=== PATIENT | male | born 1945 | race Caucasian/White ===

== ENCOUNTER 2016-12-30 11:26 | Inpatient (IN) | payer MEDICARE, BC ==
[2016-12-24 14:46] LABS: HEMATOCRIT 40.9 % (40.0-51.0); HEMOGLOBIN 13.8 g/dL (13.6-17.8)
[2016-12-24 14:59] LABS: BUN (BLOOD UREA NITROGEN) 23 MG/DL (6-23); CALCIUM, SERUM 8.7 MG/DL (8.5-10.4); CHLORIDE, SERUM 104 MMOL/L (96-112); CO2 (CARBON DIOXIDE) 30 MMOL/L (24-34); CREATININE 1.25 MG/DL (0.70-1.30); GFR AFRICAN AMERICAN 68 ML/MIN (>=60); GFR NON AFRICAN AMERICAN 58 ML/MIN (>=60); GLUCOSE, SERUM 109 MG/DL (60-99); SODIUM, SERUM 141 MMOL/L (135-148)
[2016-12-24 17:18] LABS: ASCORBIC ACID (UR NOT ORDER) NEG (NEG); BILIRUBIN, URINE NEGATIVE (NEG); KETONE, URINE NEGATIVE (NEG); LEUKOCYTE ESTERASE(NOT OR NEG (NEG); WBC (NOT ORDERED) (RFLEX) < 1 (0-5)
--- NOTE | ~2016-12-30 | DS ---
Discharge Summary [facility] [address] [facility] [place] [address] NAME: MEGHNA DEAN : 49 STATUS : DIS IN PAT#: [id number] AGE: 71 ADM/REG DATE : 12/30/16 MR#: [id number] REPORT SERV DATE: 01/10/17 DICTATED BY: SATINDER MONTANO JR. DATE: 01/09/17 REPORT STATUS : Draft TRANSCRIBED BY: MODArgentina DATE: 01/09/17 Data Collection from hospitalization DISCHARGE DIAGNOSES: 1. Right renal mass. 2. Hypertension. 3. Hyperlipidemia. 4. History of transient ischemic attack. 5. Obstructive sleep apnea. CONSULTATIONS: None. PROCEDURES PERFORMED: Laparoscopic right radical nephrectomy with adrenalectomy on 12/30/2016. PATHOLOGY: Kidney, right nephrectomy with adrenalectomy and included segment of ureter-renal cell carcinoma. MEDICATIONS: Lipitor 20 mg at bedtime, Zyrtec 10 mg every evening, vitamin D3 2000 units daily, vitamin B12 1000 mcg sublingually daily, Colace 100 mg twice a day, Zalma 7.5/325 one tablet every four hours as needed, fish oil 1000 mg daily, and Flomax 0.4 mg twice a day. He was instructed not to continue aspirin. CONDITION AT DISCHARGE: Stable. DISPOSITION: The patient was discharged home on a regular diet with activities as instructed. He would follow up with Dr. Satinder Montano Jr., on 01/16/2017, and would follow up with his primary care provider as needed. HOSPITAL COURSE: This is a 71-year-old man who has a large centrally located renal mass, there was not any evidence of renal vein invasion or thrombus. The tumor, however, would be at least a stage T1b with possibly T3 status based on imaging. He appeared to have some neovascularity posteriorly, which was found to be true at the time of surgery. He also had a very high adrenal gland posterior to the liver on imaging. Treatment options were discussed and it was elected to proceed with surgical intervention. He was admitted to the hospital for further evaluation and treatment. Upon admission, he was taken to the operating room where he underwent the above-mentioned procedure. He tolerated this well, and there were no complications. On postop day #1, he looked good. He had no new complaints. His pain was controlled. His Madison catheter was removed. He was started on a clear liquid diet. On 01/01/2017, he had some abdominal distention. The Madison was replaced. His abdomen was mildly tensed and protuberant. He did have some incisional pain. The following day, he had no new complaints. He had no nausea or vomiting. His incisions were clean, dry, and intact. Discharge planning was performed. On 01/03/2017, he was tolerating his diet. He was passing flatus and did have a bowel movement. He was voiding well. Discharge instructions were given. Due to his improved and stable condition, he was discharged home with the above-stated instructions. Discharge Summary [place] [id number] [facility] [place]. [address] NAME: MEGHNA DEAN : 49 STATUS : DIS IN [facility]#: [id number] AGE: 71 ADM/REG DATE : 12/30/16 MR#: [id number] REPORT SERV DATE: 01/10/17 DICTATED BY: SATINDER MONTANO JR. DATE: 01/09/17 REPORT STATUS : Draft TRANSCRIBED BY: YVON DATE: 01/09/17 Information collected by: Emma De Los Santos I submit the above information as my discharge summary. YOGN/YVON Satinder Montano Jr., M.D. / [id number] CC: Monica Red Jr., M.D.
--- NOTE | ~2016-12-30 | OP ---
Record Of Operation [facility] [address] [place]. [address] NAME: MEGHNA PEPE : 49 STATUS : ADM IN PAT#: [id number] AGE: 71 ADM/REG DATE : 12/30/16 MR#: [id number] REPORT SERV DATE: 12/31/16 DICTATED BY: SATINDER MONTANO JR. DATE: 12/30/16 REPORT STATUS : Draft TRANSCRIBED BY: MODL DATE: 12/30/16 DATE OF PROCEDURE: 12/30/2016 SURGEON: Satinder Montano M.D. PREOPERATIVE DIAGNOSIS: Right renal mass. POSTOPERATIVE DIAGNOSIS: Right renal mass. PROCEDURE PERFORMED: Laparoscopic right radical nephrectomy with adrenalectomy. COMPLICATIONS: None. CONSULTATIONS: None. ANESTHESIA: General with endotracheal tube. SPECIMENS: Right kidney, right adrenal. DRAINS: A 16-Turkmen Madison catheter. ESTIMATED BLOOD LOSS: 400 mL. INDICATION: Mr. Pepe is a 71-year-old gentleman who is brought today for right laparoscopic nephrectomy for a large centrally located renal mass. There was not any evidence of renal vein invasion or thrombus. The tumor, however, would be at least a stage T1b with possibly T3 status based on imaging. He appears to have some neovascularity posteriorly which was found to be true at the time of the surgery. He also had a very high adrenal gland posterior to the liver on imaging. I did note that and discussed the possibility of sparing the adrenal gland with the patient depending on its distance from the top of the kidney. PROCEDURE IN DETAIL: After the patient was identified and proper informed consent was obtained, he was taken to the operating room. General anesthesia was performed without complication using an endotracheal tube. He was then prepped and draped in normal sterile fashion in the modified thoracoabdominal position. I then placed a 12 mm trocar through an incision in the umbilicus, into the peritoneal cavity. The peritoneal cavity was inspected. I did not note any adhesions or any abnormalities. Two other 12 mm trocars were placed, one in the right lower quadrant, one just to the right of the falciform ligament. These were placed under direct vision along with the 5 mm trocar at the costophrenic angle. I then began by incising the white line of Toldt and mobilizing the right hemicolon by incising the renal colic ligaments. The appendix was juxtaposed to the lower pole of the kidney as well. These were all reflected medially and inferiorly away from the kidney to expose the retroperitoneum and the duodenum. There was a large cyst approximately 7 cm medially on the kidney directly above the hilum which was making it somewhat difficult to dissect out the hilum. The kidney specimen was somewhat heavy as well. I decided to dissect out the inferior pole of the kidney and tried to use that for traction and elevation rather than the Record Of Operation [address] [place]. [address] NAME: MEGHNA PEPE : 49 STATUS : ADM IN PAT#: [id number] AGE: 71 ADM/REG DATE : 12/30/16 MR#: [id number] REPORT SERV DATE: 12/31/16 DICTATED BY: SATINDER MONTANO JR. DATE: 12/30/16 REPORT STATUS : Draft TRANSCRIBED BY: YVON DATE: 12/30/16 anterior part of the kidney so that we could prevent rupturing of the cyst. The gonadal vein was dissected out, and lateral and anterior to this, I located the ureter. This was ligated and transected, and using the Harmonic scalpel, I incised below Gerota's fascia and up around lateral and posterior to the kidney to just above what I considered the hilum location would be. I then dissected along the anterior and lateral surface of the gonadal vein up to the vena cava and then began clearing off the vena cava and kocherizing the duodenum. The cyst again was just really in the way and made it difficult to visualize the renal hilum as it was basically hiding the renal hilum and abutting out onto the vena cava. I tried elevating the lower pole of the kidney and was able to dissect out the inferior portion of the hilum but just could not see the superior pole of the hilum. It was at that point, I decided to drain the cyst. I placed the suction staff antisubmarine officer on the cyst wall and simply punctured the cyst and suctioned the fluid out. This made things much more easy. I was able to visualize the renal hilum. He had 2 renal veins that were separate, 1 main renal vein and then 1 superior to that and a renal artery complex that was superior to the more superior of the two renal veins. I ligated and transected the main renal vein, and then the accessory renal vein above it along with the renal artery with an endovascular KADIE stapling device. Posteriorly, there were several large dilated perforating vessels. These were ligated with a variety of methods, endovascular KADIE stapling devices and hemoclips; however, these back bled for quite some time during the procedure, and I believe this is where most of the blood loss came from, was old blood trapped in the kidney after hilum transection. The adrenal gland was probably the most difficult portion of the case as it was very elevated above the kidney and high and posterior to the liver. I placed a Nida flex retractor through the 5 mm trocar site and elevated the liver as much as I could and continued to dissect along the vena cava laterally until I was able to identify the adrenal vein. This was ligated using 2 hemoclips on the vena cava side and one on the adrenal side and transected using Endo Kelsey. I then used the Harmonic scalpel and endovascular KADIE stapling device around the superior pole of the adrenal gland. There was a small puncture in the liver at this site from retraction, but this was from the suction device and was quite small. I placed a small piece of Surgicel within the defect, and this seemed to control that bleeding. I then continued around the superior pole of the kidney until it was freed up from the retroperitoneum. I attempted to place the specimen within an endobag, but the specimen was definitely too large. I got approximately two-thirds of it within the endobag. Leaving it in the endobag, I brought the string of the endobag out through the umbilicus. I then inspected the retroperitoneum for hemostasis and also irrigated with sterile saline. Once I was satisfied that hemostasis was good, I enlarged the umbilical incision and ordered to remove the specimen intact. I then closed the umbilical incision using a 0 looped PDS suture in the rectus fascia, 3-0 Vicryl in the Judit's fascia, and then a 4-0 Monocryl was used to close the skin of all incisions. The patient was awakened in the operating room, transferred to the postanesthesia care unit in stable condition. KATRIN/YVON Satinder Montano Jr., M.D. Record Of [facility] [address] [place] [address] NAME: MEGHNA PEPE : 49 STATUS : ADM IN PAT#: [id number] AGE: 71 ADM/REG DATE : 12/30/16 MR#: [id number] REPORT SERV DATE: 12/31/16 DICTATED BY: SATINDER MONTANO JR. DATE: 12/30/16 REPORT STATUS : Draft TRANSCRIBED BY: YVON DATE: 12/30/16 / [id number]
[~2016-12-30 11:26] MED LIST: ASAB PO; FISH-EPA1000 MG PO; FLOMAX4 PO; LIPITOR20 PO; VITAMIN B-121000 MC1 SL; VITAMIN D31000 UNIT PO; ZYRTEC ALLGY10 MG PO
[2016-12-30 22:59] LABS: BASOPHILS 0.1 %; BASOPHILS ABSOLUTE 0.01 10/3/uL (0.0-0.16); EOSINOPHILS 0.1 %; EOSINOPHILS ABSOLUTE 0.01 10/3/uL (0.0-0.53); HEMATOCRIT 37.5 % (40.0-51.0); HEMOGLOBIN 12.8 g/dL (13.6-17.8); IMMATURE GRANULOCYTES 0.1 %; IMMATURE GRANULOCYTES ABSOLUTE 0.01 10/3/uL (0.0-0.11); LYMPHOCYTES 7.8 %; LYMPHOCYTES ABSOLUTE 0.75 10/3/uL (0.67-4.30); MANUAL DIFF NO %; MEAN CORPUS HGB CONC 34.1 g/dL (32.0-36.0); MEAN CORPUSCULAR HEMOGLOB 29.6 pg (26.0-34.0); MEAN CORPUSCULAR VOLUME 86.8 fL (80-100); MEAN PLATELET VOLUME 9.5 fL (9.2-13.0); MONOCYTES 5.5 %; MONOCYTES ABSOLUTE 0.53 10/3/uL (0.21-1.20); NEUTROPHILS 86.4 %; NEUTROPHILS ABSOLUTE 8.26 10/3/uL (2.02-8.40); PLATELET COUNT 187 10/3/uL (150-400); RBC DISTRIBUTION WIDTH 13.8 % (12.0-16.0); RED CELL COUNT 4.32 10/6/uL (4.7-6.1); WHITE BLOOD CELLS 9.6 10/3/uL (4.5-10.5)
[2016-12-30 23:13] LABS: BUN (BLOOD UREA NITROGEN) 21 MG/DL (6-23); CALCIUM, SERUM 7.8 MG/DL (8.5-10.4); CHLORIDE, SERUM 108 MMOL/L (96-112); CREATININE 1.42 MG/DL (0.70-1.30); GFR AFRICAN AMERICAN 58 ML/MIN (>=60); GFR NON AFRICAN AMERICAN 50 ML/MIN (>=60); POTASSIUM, SERUM 4.4 MMOL/L (3.5-5.3); SODIUM, SERUM 140 MMOL/L (135-148)
[2016-12-30 23:16] LABS: CO2 (CARBON DIOXIDE) 23 MMOL/L (24-34); GLUCOSE, SERUM 145 MG/DL (60-99)
[2017-01-03] MEDS ORDERED: DSS PO (11:10)
[2017-01-03] MEDS ORDERED: NORCO1 TA2 PO (11:11)
== END 2017-01-03 15:40 | disposition home or self-care (01) | DRG 658 ==
LOC: SDC/OF 11:26 → 4SO 20:20
PROVIDERS: Urology
PROC: 0TB64ZZ Excision of Right Ureter, Percutaneous Endoscopic Approach (ICD-10-PCS; 2016-12-30)
PROC: 0T9070Z Drainage of Right Kidney with Drainage Device, Via Natural or Artificial Opening (ICD-10-PCS; 2016-12-30)
PROC: 0GT34ZZ Resection of Right Adrenal Gland, Percutaneous Endoscopic Approach (ICD-10-PCS; principal; 2016-12-30 15:00)
DX: C65.1 Malignant neoplasm of right renal pelvis (principal); G47.33 Obstructive sleep apnea (adult) (pediatric); K21.9 Gastro-esophageal reflux disease without esophagitis; N40.0 Benign prostatic hyperplasia without lower urinary tract symptoms; Z87.891 Personal history of nicotine dependence; Z86.73 Personal history of transient ischemic attack (TIA), and cerebral infarction without residual deficits; Z88.1 Allergy status to other antibiotic agents
CPT/HCPCS: 36415; 80048; 81001; 85014; 85018; 85025; 86850; 86900; 86901; 88305; 88307; 88311; 93005; A9270-GY; J0694; J2250; J2270; J2405; J2710; J2795; J3010; P9045